=== PATIENT | female | born 1980 | race African-American/Black ===

== ENCOUNTER 2024-12-14 23:18 | Emergency (ER) | payer MEDICAID ==
[~2024-12-14] VITALS: Ht 167.6 cm; Wt 49.0 kg
[2024-12-14 23:35] VITALS: O2SAT 100
[2024-12-15 00:07] LABS: HEMATOCRIT. 29.4 % (36.0-48.0); HEMOGLOBIN. 9.1 g/dL (12.0-16.0); MEAN CORPUSCULAR HEMOGLOBIN 20.4 pg (28.0-32.0); MEAN CORPUSCULAR HGB CONC 30.9 g/dL (31.0-37.0); MEAN PLATELET VOLUME 8.1 fl (7.4-10.4); PLATELET 615 x1000/uL (130-400); RED BLOOD CELL COUNT 4.45 mill/uL (4.2-5.4); RED CELL DISTRIBUTION WIDTH 19.1 % (11.6-14.6); WHITE BLOOD COUNT 8.8 x1000/uL (4.5-11.0)
[2024-12-15 00:10] LABS: DIFFERENTIAL COMMENT 1
[2024-12-15 00:13] LABS: CHLORIDE 104 mEq/L (98-107); POTASSIUM 3.6 mEq/L (3.5-5.1); SODIUM 136 mEq/L (136-145)
[2024-12-15 00:14] LABS: CALCIUM 9.6 mg/dL (8.7-10.4); CARBON DIOXIDE 23 mEq/L (21-32)
[2024-12-15 00:19] LABS: CREATININE 0.9 mg/dL (0.6-1.0); GLUCOSE 117 mg/dL (70-105); UREA NITROGEN BLOOD 12 mg/dL (9-23)
[2024-12-15 00:20] LABS: LACTIC ACID 2.2 mmol/L (0.4-2.0)
[2024-12-15 00:30] LABS: TROPONIN I HIGH SENSITIVITY < 4 ng/L (3.0-34)
[2024-12-15 02:04] LABS: HCG SCREEN NEGATIVE
[2024-12-15] MEDS ORDERED: MEDR10TA MT (03:07)
[2024-12-15] MEDS ORDERED: FERR-71 MT (03:07)
[2024-12-15] MEDS: PANTOPRAZOLE 40MG DR TABLET PO ONE (05:28)
[2024-12-15 06:19] VITALS: BP 162/83; PULSE 60; RESP 16; TEMP 36.6; O2SAT 100
[2024-12-15 08:18] LABS: ANISOCYTOSIS 2+; MICROCYTOSIS 2+; OVALOCYTES 1+; PLATELET ESTIMATE INCREASED
== END 2024-12-15 06:26 | disposition home or self-care (01) ==
LOC: ER 23:33
DX: N93.8 Other specified abnormal uterine and vaginal bleeding (principal); D25.9 Leiomyoma of uterus, unspecified; D50.9 Iron deficiency anemia, unspecified; Z79.3 Long term (current) use of hormonal contraceptives; Z86.018 Personal history of other benign neoplasm
CPT/HCPCS: 36415; 76856; 80048; 83605; 84484; 84703; 85025; 86850; 86900; 99284